=== PATIENT | female | born 1995 | race Caucasian/White ===

== ENCOUNTER 2017-06-27 14:06 | Emergency (ER) | payer OTHER ==
[~2017-06-27] VITALS: Ht 165.1 cm; Wt 58.4 kg
[2017-06-27 14:13] VITALS: TEMP 36.5; Ht 165.1 cm; Wt 58.4 kg
--- NOTE | 2017-06-27 15:33 | EMERGENCY ROOM VISIT NOTE ---
History First contact with patient: 15:03 Chief Complaint: LEG PAIN,LEG INJURY Stated Complaint: BILAT LEG PAIN History of Present Illness The patient is a 21 year old female who presents to the Emergency Room with complaints of bilateral lower extremity pain that has been intermittent over the last few months. She denies any injury. On the left leg, it is mostly on the lateral aspect. On the right leg, it's mainly behind the knee. She has been taking naproxen with good pain relief. She denies any back pain. The pain is better with exertion and worse with rest. The patient was seen at [facility]. A d-dimer was performed. It was elevated. She did recently travel to [facility]. She is also on control pills. Review of Systems 10 system review performed and negative unless noted in HPI or below Past Medical/Surgical History Otherwise healthy Social History Smoking Status: Never Smoker Occupation Status: [employer] student Current/Historical Medications Scheduled Control Pills ( Control Pills), 1 TAB PO DAILY Ibuprofen Tab (Advil), 400 MG PO PRN UD Physical Exam Vital Signs Date Time Temp Pulse Resp B/P (MAP) Pulse Ox O2 Delivery O2 Flow Rate FiO2 06/27/17 18:00 75 18 111/79 98 06/27/17 14:13 36.5 90 20 112/93 95 Room Air Physical Exam VITALS: Vitals are noted on the nurse's note and reviewed by myself. Vital signs stable. GENERAL: 21-year-old female, in no acute distress, nondiaphoretic, well- developed well-nourished. SKIN: The skin was without rashes, erythema, edema, or bruising. HEAD: Normocephalic atraumatic. HEART: Regular rate and rhythm without murmurs gallops or rubs. LUNGS: Clear to auscultation bilaterally without wheezes, rales or rhonchi. No accessory muscle use. MUSCULOSKELETAL: No muscle atrophy, erythema, or edema noted. Full range of motion in all extremities. No tenderness to palpation. Normal gait. No tenderness over the lumbar spinous processes or SI joint bilaterally. Negative straight leg test. DP pulse +2 bilaterally. Capillary refill is less than 2 seconds. No tenderness over the calves bilaterally. Strength 5/5 throughout. NEURO: Patient was alert and oriented to person place and time. Normal sensation to touch. No focal neurological deficits. Medical Decision & Procedures ER Provider Diagnostic Interpretation: Lumbar spine x-rays Patient Name: JOSELUIS CANTOR Unit Number: [id number] Dictated: 06/27/171534 Transcribed: 06/27/171534 EV Printed Date/Time: [~ rep prt dt]/[~ rep prt tm] [~ rep ct labl] - [~ rep ct ivnm] [facility] [place] [address] Dictated: 06/27/171534 Transcribed: 06/27/171534 EV Printed Date/Time: [~ rep prt dt]/[~ rep prt tm] [~ rep ct labl] - [~ rep ct ivnm] IMPRESSION: Unremarkable radiographic evaluation of the lumbosacral spine. Electronically signed by: Toni Kam M.D. 06/27/2017 3:35 PM Dictated Date/Time: 06/27/2017 3:35 PM The status of this report is Signed. Draft = Not yet reviewed or approved by Radiologist. Signed = Reviewed and approved by Radiologist. <AttendingPhy></AttendingPhy> <FamilyPhy></FamilyPhy> <PrimaryPhy></PrimaryPhy> <UnitNumber>[id number]</UnitNumber> <VisitNumber>[id number]</VisitNumber> < PatientName>JOSELUIS CANTOR</PatientName> <DateOfBirth>1995</DateOfBirth> < Location>C.EDB</Location> <ServiceDate>06/27/17</ServiceDate> <MNE>ESINDI</MNE> <OrderingPhy>Rosa Olivier PA-C</OrderingPhy> <OrderingPhyMNE>f rep ord dr [place] </OrderingPhyMNE> <DictatingPhyMNE>f rep dict dr [place]</DictatingPhyMNE> < CCListMNE>f rep ct eulogioe</CCListMNE> <AdmittingPhyMNE>f pt admit dr [place]</ AdmittingPhyMNE> <AttendingPhyMNE>f pt attend dr [place]</AttendingPhyMNE> <ConsultingPhyMNE>f pt consult dr [place]</ConsultingPhyMNE> <FamilyPhyMNE>f pt fam dr [place]</FamilyPhyMNE> <OtherPhyMNE>f pt other dr [place]</OtherPhyMNE> < PrimaryPhyMNE>f pt prim care dr [place]</PrimaryPhyMNE> <ReferringPhyMNE>f pt referring dr [place]</ReferringPhyMNE> Bilateral lower extremity Doppler IMPRESSION: No evidence of deep venous thrombus within the bilateral lower extremities. Electronically signed by: Johnson Constantino M.D. 06/27/2017 4:57 PM Dictated Date/Time: 06/27/2017 4:56 PM The status of this report is Signed. Draft = Not yet reviewed or approved by Radiologist. Signed = Reviewed and approved by Radiologist. <AttendingPhy></AttendingPhy> <FamilyPhy>[facility]</FamilyPhy> <PrimaryPhy>[facility]</PrimaryPhy> <UnitNumber>[id number]</ UnitNumber> <VisitNumber>[id number]</VisitNumber> ED Course The patient was seen and examined She declined pain medication Imaging was performed The findings were discussed with the patient She voiced understanding. Discharge instructions were reviewed, and she was discharged in good condition Medical Decision Differential diagnosis: DVT, radiculopathy, contusion, neuromuscular disease, popliteal cyst This patient is a 21-year-old female that presents to the emergency department with bilateral leg pain that has been intermittent over the last several months. She saw [facility] first. Blood work was performed. There is concern for a positive d-dimer as the patient has had a recent long trip. On exam, she is neurovascularly intact. There are no signs of trauma. Imaging did not show any signs of DVT or significant back injury. The etiology of her pain is unclear. If this persists, she may need further testing. She was instructed to continue ibuprofen if needed for pain. She will follow-up with [facility]. She was also given the name of a neurologist for further workup. This chart was completed in part utilizing [employer] Speech Voice Recognition software. Attempts were made to minimize the grammatical errors, random word insertions, pronoun errors and incomplete sentences. Any formal questions or concerns about the content, text or information contained within the body of this dictation should be directly addressed to the provider for clarification. Blood Pressure Screening Patient's blood pressure: Normal blood pressure Impression Primary Impression: Bilateral leg pain Departure Information Dispostion Home / Self-Care Condition GOOD Referrals Jimmie Child M.D. Patient Instructions My [facility] Additional Instructions You had been evaluated in the emergency department for leg pain. The testing here shows no signs of any blood clots. There is also no abnormalities noted on the x-rays of your lumbar spine. The cause of the pain at this point is unclear. You may need further testing if the pain persists. Please follow-up with [facility] next week. They may refer you to a neurologist. A number has been provided. Ibuprofen 800 mg and/or Tylenol 1000 mg every 8 hours as needed for pain relief. You may also alternate these medications for more effective pain relief: Ibuprofen --4 HRS--> Tylenol --4 HRS--> ibuprofen --4 HRS--> Tylenol .... Do not hesitate to return to the emergency department with any new, worsening and concerning symptoms
--- NOTE | 2017-06-27 15:37 | DIAGNOSTIC IMAGING REPORT ---
LUMBAR SPINE 5 VIEWS CLINICAL HISTORY: Bilateral leg pain. FINDINGS: 5 views of the lumbar spine are obtained. No prior studies are available for comparison at the time of dictation. The skeletal structures are well mineralized. There is no radiographic evidence of fracture or malalignment. Vertebral body height and alignment are maintained. The transverse and spinous processes are intact. There is no evidence of spondylolysis. The intervertebral disc spaces are well-maintained. The visualized bony pelvis appears intact. There is a nonobstructed abdominal bowel gas pattern. IMPRESSION: Unremarkable radiographic evaluation of the lumbosacral spine. Electronically signed by: Toni Kam M.D. 06/27/2017 3:35 PM Dictated Date/Time: 06/27/2017 3:35 PM
[2017-06-27] MEDS ORDERED: IBUP-103 PO (15:48)
[2017-06-27] MEDS ORDERED: BCPILLS PO (15:48)
--- NOTE | 2017-06-27 16:58 | DIAGNOSTIC IMAGING REPORT ---
BILATERAL LOWER EXTREMITY VENOUS DOPPLER CLINICAL HISTORY: bilat LE pain R>L recent travel COMPARISON STUDY: No previous studies for comparison. TECHNIQUE: Sonography of the deep venous system of the bilateral lower extremities was performed. Compression and augmentation were evaluated. FINDINGS: The common femoral, superficial femoral and popliteal veins were compressible. Augmentation was normal. Flow was shown within the deep calf vessels. IMPRESSION: No evidence of deep venous thrombus within the bilateral lower extremities. Electronically signed by: Johnson Constantino M.D. 06/27/2017 4:57 PM Dictated Date/Time: 06/27/2017 4:56 PM
[2017-06-27 18:00] VITALS: BP 111/79; PULSE 75; O2SAT 98
== END 2017-06-27 18:00 | disposition home or self-care (01) ==
LOC: C.EDB 14:08
DX: M79.604 Pain in right leg (principal); M79.605 Pain in left leg; Z79.3 Long term (current) use of hormonal contraceptives